=== PATIENT | male | born 1985 | race Hispanic/Latino ===

== ENCOUNTER 2018-06-30 16:14 | Emergency (ER) | payer MEDICARE ==
[~2018-06-30] VITALS: Ht 177.8 cm; Wt 98.4 kg
[2018-06-30] MEDS ORDERED: HYDROCODONE/APAP 7.5MG-325MG 1 EA TAB PO PRN (16:45)
[2018-06-30] MEDS ORDERED: KETOROLAC TROMETHAMINE 60 MG/2 ML VIAL IM ONE (16:45)
--- NOTE | 2018-06-30 17:59 | Diagnostic Imaging Report ---
EXAMINATION: CHEST 2 VIEWS INDICATION: Pain. COMPARISON: None FINDINGS: TUBES and LINES: None. LUNGS: Mild patchy density in the left lower lobe may represent atelectasis or developing pneumonia in the proper clinical setting. Bilateral perihilar, peribronchial thickening. PLEURA: No pleural effusion or pneumothorax. HEART AND MEDIASTINUM: The cardiomediastinal silhouette is unremarkable. BONES AND SOFT TISSUES: No acute osseous lesion. Soft tissues are unremarkable. UPPER ABDOMEN: No free air under the diaphragm. IMPRESSION: Findings concerning for developing left lower lobe pneumonia. Recommend follow-up chest PA and lateral views in 6-8 weeks after treatment to document resolution. Signed by: Dr. Kadie Alas M.D. on 06/30/2018 5:55 PM
[2018-06-30] MEDS ORDERED: CEFTRIAXONE SOD 1 GM VIAL IM ONE (19:30)
[2018-06-30] MEDS ORDERED: LIDOCAINE HCL 1% LOCAL INJ 20 ML VIAL ONE (19:42)
== END 2018-06-30 20:40 | disposition home or self-care (01) ==
LOC: ER 16:14
DX: M25.512 Pain in left shoulder (principal); R07.1 Chest pain on breathing; J15.9 Unspecified bacterial pneumonia; I10 Essential (primary) hypertension; E11.9 Type 2 diabetes mellitus without complications; Z94.0 Kidney transplant status
CPT/HCPCS: 71046; 93005; 99283; J0696; J1885; J2001

== ENCOUNTER 2018-07-07 16:40 | Emergency (ER) | payer MEDICARE, BC ==
[~2018-07-07] VITALS: Ht 177.8 cm; Wt 98.4 kg
--- OUTSIDE RECORDS SUMMARY | 2018-07-07 16:43 | XMS REPORT ---
Author [facility] Address Unknown Phone Unavailable Care Team Providers Care Oyster Shipper Name Role Phone Junior HODGE Unavailable Unavailable Problems This patient has no known problems. Allergies, Adverse Reactions, Alerts This patient has no known allergies or adverse reactions. Medications This patient has no known medications. Results Test Description Test Time Test Comments Text Results Atomic Results Result Comments CHEST 2 VIEWS 2018-06-30 17:54:00 [place] [id number] [place] [id number] Patient Name: FELICITY GUZMAN MR #: [id number] : 1985 Age/Sex: 32/M Req #: [id number] Adm Physician: Ordered by: ALINE MCDOWELL [employer]IE[employer] Report #: [id number] Location: ER Room/Bed: Procedure: [id number] DX/CHEST 2 VIEWS Exam Date: 06/30/18 Exam Time: 1728 REPORT STATUS: Signed EXAMINATION: CHEST 2 VIEWS INDICATION: Pain. CO MPARISON: None FINDINGS: TUBES and LINES: None. LUNGS: Mild patchy density in the left lower lobe may represent atelectasis or developing pneumonia in the proper clinical setting. Bilateral perihilar, peribronchial thickening. PLEURA: No pleural effusion or pneumothorax. HEART AND MEDIASTINUM: The cardiomediastinal silhouette is unremarkable. BONES AND SOFT TISSUES: No acute osseous lesion. Soft tissues are unremarkable. UPPER ABDOMEN: No free air under the diaphragm. IMPRESSION: Findings concerning for developing left lower lobe pneumonia. Recommend follow-up chest PA and lateral views in 6-8 weeks after treatment to document resolution. Signed by: Dr. Kadie Robbins M.D. on 06/30/2018 5:55 PM Dictated By: NATALIE ROBBINS MD, MD 54 Transcribed By: JOI on 06/30/181754 COPY TO: ALINE MCDOWELL NP
[2018-07-07 17:37] LABS: BASOPHILS % 0.3 % (0.0-1.0); EOSINOPHILS # (AUTO) 0.1 (0.0-0.4); HEMATOCRIT 41.4 % (38.2-49.6); HEMOGLOBIN 14.7 g/dL (14.0-18.0); LYMPHOCYTES # (AUTO) 0.6 (1.0-3.2); LYMPHOCYTES % 4.9 % (18.0-39.1); MEAN CORPUSCULAR HEMOGLOBIN 29.2 pg (28-32); MEAN CORPUSCULAR HGB CONC 35.5 g/dL (31-35); MEAN CORPUSCULAR VOLUME 82.3 fL (81-99); MONOCYTES # (AUTO) 0.7 (0.2-0.8); MONOCYTES % 5.9 % (4.4-11.3); NEUTROPHILS # (AUTO) 10.6 (2.1-6.9); NEUTROPHILS % 87.5 % (38.7-80.0); PLATELET COUNT 407 x10e3/uL (140-360); RED BLOOD COUNT 5.03 x10e6/uL (4.3-5.7); RED CELL DISTRIBUTION WIDTH 11.7 % (11.7-14.4)
[2018-07-07 18:03] LABS: ALANINE AMINOTRANSFERASE 25 IU/L (0-55); ALBUMIN 3.1 g/dL (3.5-5.0); ALBUMIN/GLOBULIN RATIO 0.6 (0.8-2.0); ALKALINE PHOSPHATASE 117 IU/L (40-150); ANION GAP 17.3 mmol/L (8-16); BLOOD UREA NITROGEN 16 mg/dL (7-26); BUN/CREATININE RATIO 13 (6-25); CALCIUM 10.5 mg/dL (8.4-10.2); CARBON DIOXIDE 24 mmol/L (22-29); CHLORIDE 92 mmol/L (98-107); CREATININE, SERUM 1.19 mg/dL (0.72-1.25); EST GLOMERULAR FILTRATION RATE > 60 ML/MIN (60-); POTASSIUM 4.3 mmol/L (3.5-5.1); SODIUM 129 mmol/L (136-145)
[2018-07-07 18:07] LABS: GLUCOSE 402 mg/dL (74-118)
--- NOTE | 2018-07-07 18:35 | Diagnostic Imaging Report ---
EXAMINATION: CHEST 2 VIEWS INDICATION: ^cough, SOB ^[id number] ^1750 COMPARISON: Chest radiograph 06/30/2018 FINDINGS: PA and lateral views TUBES and LINES: None. LUNGS: Lungs are well inflated. Worsening left lower lobe consolidation. No pulmonary edema. PLEURA: No pleural effusion or pneumothorax. HEART AND MEDIASTINUM: The cardiomediastinal silhouette is unremarkable. BONES AND SOFT TISSUES: No acute osseous lesion. Soft tissues are unremarkable. UPPER ABDOMEN: No free air under the diaphragm. IMPRESSION: Worsening left lower lobe pneumonia. Signed by: Dr. Lilly Mcbride M.D. on 07/07/2018 6:31 PM
[2018-07-07] MEDS ORDERED: SODIUM CHLORIDE 0.9% 1000ML 1,000 ML IV ONE (19:30)
[2018-07-07] MEDS ORDERED: LEVOFLOXACIN 750MG/D5W 150ML 150 ML IV SCH (20:00)
[2018-07-07] MEDS ORDERED: INSULIN REGULAR, HUMAN 100 UNIT/1 ML 3ML VIAL IV ONE (20:15)
[2018-07-07] MEDS ORDERED: VANCOMYCIN 1GM/NS 250 ML 250 ML IV ONE (20:19)
[2018-07-07] MEDS ORDERED: CEFEPIME HCL 2 GM VIAL IV STA (20:19)
[2018-07-07] MEDS ORDERED: CEFEPIME 2 GM/NS 0.9% 100 ML 100 ML IV ONE (20:30)
[2018-07-07] MEDS ORDERED: SODIUM CHLORIDE 0.9% 1000ML 1,000 ML ONE (20:40)
[2018-07-07] MEDS ORDERED: HYDROCODONE/CHLORPHENIRAMINE 5 ML LIQCR PO ONE (22:15)
== END 2018-07-08 00:30 | disposition other institution (70) ==
LOC: ER 16:40
DX: R06.00 Dyspnea, unspecified (principal); R05 Cough; J15.9 Unspecified bacterial pneumonia; I10 Essential (primary) hypertension; E11.9 Type 2 diabetes mellitus without complications; Z94.0 Kidney transplant status
CPT/HCPCS: 36415; 71046; 80053; 82948; 83605; 85025; 87040; 99284; J1817; J3370; J7030

== ENCOUNTER 2018-10-03 13:37 | Emergency (ER) | payer BC, MEDICARE ==
[~2018-10-03] VITALS: Ht 177.8 cm; Wt 97.1 kg
[2018-10-03] MEDS ORDERED: CEFTRIAXONE SOD 1 GM VIAL IM ONE (15:30)
--- NOTE | 2018-10-03 18:08 | Diagnostic Imaging Report ---
Examination: Single AP view of the chest. COMPARISON: Chest 2 views 07/07/2028 INDICATION: Fever for 3 days, upper respiratory symptoms for 4 days with cough IMPRESSION: 1. Lines and Tubes: None 2. Lungs are grossly clear. No consolidation or effusion. 3. Cardiomediastinal silhouette is normal. Pulmonary vasculature is normal. 4. No acute bony abnormalities. Signed by: Dr. Manuel Bustillo M.D. on 10/03/2018 6:04 PM
[2018-10-03] MEDS ORDERED: LIDOCAINE HCL 1% LOCAL INJ 20 ML VIAL IM ONE (18:45)
[2018-10-03] MEDS ORDERED: CEFTRIAXONE SOD 1 GM VIAL ONE (18:48)
[2018-10-03 19:22] LABS: STREPTOCOCCUS GRP A ANTIGEN NEGATIVE (NEGATIVE)
[2018-10-03 19:33] LABS: INFLUENZAE A&B ANTIGEN (RAPID) NEGATIVE (NEGATIVE)
[2018-10-04 01:25] VITALS: BP 151/94
== END 2018-10-03 21:56 | disposition home or self-care (01) ==
LOC: ER 13:37
DX: R50.9 Fever, unspecified (principal); R05 Cough; J06.9 Acute upper respiratory infection, unspecified; J01.30 Acute sphenoidal sinusitis, unspecified; J01.20 Acute ethmoidal sinusitis, unspecified; I10 Essential (primary) hypertension; E11.9 Type 2 diabetes mellitus without complications; Z94.0 Kidney transplant status
CPT/HCPCS: 71045; 83518; 87070; 87400; J0696; J2001